=== PATIENT | male | born 1980 | race Caucasian/White ===

== ENCOUNTER 2021-08-16 18:04 | Inpatient (IN) | payer OTHER ==
[~2021-08-16] VITALS: Ht 170.2 cm; Wt 80.8 kg
[2021-08-16 18:08] VITALS: BP 129/75
[2021-08-16] MEDS ORDERED: NOVOLOG MI100 UNIT/M SUBQ (18:13)
[2021-08-16 20:18] LABS: BE 1.8 mmol/L (-2 to +3); PCO2 VENOUS 49.1 mmHg (41.0-51.0); PO2 VENOUS 28.7 mmHg (35.0-45.0)
[2021-08-16 20:19] LABS: ABSOLUTE LYMPHOCYTES 2.9 thou/uL (0.8-5.3); NUCLEATED RBCS 0 /100WBC; RDW-CV 13.5 % (10.5-14.5)
[2021-08-16 20:20] LABS: ABSOLUTE BASOPHILS 0.1 thou/uL (0.0-0.2); ABSOLUTE EOSINOPHILS 0.1 thou/uL (0.0-0.7); ABSOLUTE MONOCYTES 1.1 thou/uL (0.0-1.2); ABSOLUTE NEUTROPHILS 8.8 thou/uL (1.6-8.1); BASOPHILS 0.4 %; EOSINOPHILS 0.5 %; HEMATOCRIT 45.9 % (42.0-52.0); HEMOGLOBIN 15.9 gm/dL (14.0-18.0); LYMPHOCYTES 22.4 %; MCH 30.8 pg (26.0-34.0); MCHC 34.7 g/dL (28.0-37.0); MCV 88.8 fL (80.0-100.0); MONOCYTES 8.4 %; MPV 8.7 fl. (7.2-11.1); PLATELET COUNT* 185 thou/uL (150-400); POLYS 68.3 %; RBC 5.17 mil/uL (4.50-6.00); WBC 12.9 thou/uL (4.0-11.0)
[2021-08-16 20:28] LABS: URINE BILIRUBIN NEGATIVE (Negative); URINE BLOOD NEGATIVE (Negative); URINE CLARITY CLEAR; URINE COLOR YELLOW; URINE GLUCOSE-RANDOM 1+ (Negative); URINE KETONES NEGATIVE (Negative); URINE LEUKOCYTES-REFLEX NEGATIVE (Negative); URINE NITRITE-REFLEX NEGATIVE (Negative); URINE PROTEIN NEGATIVE (Negative)
[2021-08-16 20:28] LABS: CALCIUM 8.5 mg/dL (8.5-10.1); CREATININE 1.2 mg/dL (0.6-1.3); POTASSIUM 4.4 mmol/L (3.5-5.1)
[2021-08-16 20:33] LABS: ALBUMIN 3.6 g/dL (3.4-5.0); TOTAL BILIRUBIN 0.5 mg/dL (<0.1-1.0); TOTAL PROTEIN 7.6 g/dL (6.4-8.2)
[2021-08-16 20:43] LABS: AMP/METHAMP Negative (Negative); BARBITURATES Negative (Negative); BENZODIAZEPINES Negative (Negative); COCAINE Negative (Negative); METHADONE Negative (Negative); OPIATES Negative (Negative); PCP Negative (Negative); THC POSITIVE (Negative)
[2021-08-16 20:51] LABS: CHOLESTEROL 166 mg/dL (<200); HDL CHOLESTEROL 41 mg/dL (>40); LDL CHOLESTEROL 80 mg/dL (<100); TRIGLYCERIDE 227 mg/dL (<150); VLDL 45 mg/dL (<40)
[2021-08-16 20:54] LABS: SERUM ASSESSMENT Clear
[2021-08-16 23:15] VITALS: BP 116/81
[2021-08-16 23:30] VITALS: BP 112/70
[2021-08-17 08:30] VITALS: BP 115/77
--- NOTE | 2021-08-17 14:17 | EKG ---
[place] [address] ELECTROCARDIOGRAM REPORT Name: ANGELITO BANG Room: [address] IN ..#: [id number] Admission: 08/16/21 Attend Phys: Ren Lacy Discharge: Date of : 76 Date of Service: 08/16/212021 Report #: [id number] THIS REPORT FOR: //name// [facility] ED Test Date: 2021-08-16 Test Time: 20:22:29 Pat Name: ANGELITO BANG Department: Room: [facility] Gender: M [employer] Att[employer]: : 1980 Requested By: Justyna Read Order Number: [id number] MD: Trung Miles Measurements Intervals [place] Rate: 94 P: 72 [place]: 148 QRS: -10 QRSD: 93 T: 23 QT: 344 QTc: 431 Interpretive Statements Sinus rhythm No previous ECG available for comparison Electronically Signed On 08-17-2021 14:17:27 PULMONOLOGY PHYSICIAN by Trung Miles [email or web address] <ELECTRONICALLY SIGNED> By: Trung Miles MD, [facility] 08/17/21 1417 21 21 Trung Miles MD, [facility] /EPI
[2021-08-17 16:00] VITALS: BP 117/71
[2021-08-17 20:33] VITALS: BP 110/68
[2021-08-18 04:14] LABS: HEMATOCRIT 39.2 % (42.0-52.0); MCH 30.5 pg (26.0-34.0); MCHC 34.3 g/dL (28.0-37.0); MPV 8.4 fl. (7.2-11.1); RBC 4.4 mil/uL (4.50-6.00); RDW-CV 13.1 % (10.5-14.5); WBC 9.5 thou/uL (4.0-11.0)
[2021-08-18 04:54] LABS: CALCIUM 7.7 mg/dL (8.5-10.1); CREATININE 0.9 mg/dL (0.6-1.3)
[2021-08-18 05:01] LABS: HEMOGLOBIN 13.4 gm/dL (14.0-18.0)
[2021-08-18 07:08] LABS: GLYCOHEMOGLOBIN (HGB A1C) 13.5 % (4.8-5.6)
[2021-08-18 08:00] VITALS: BP 127/82
[2021-08-18 19:55] VITALS: BP 111/75
[2021-08-19 00:06] VITALS: BP 108/61
[2021-08-19 04:06] LABS: HEPATITIS B SURFACE AG Negative (Negative)
[2021-08-19 04:35] VITALS: BP 105/72
[2021-08-19 08:00] VITALS: BP 112/72
[2021-08-19 08:39] LABS: HEMATOCRIT 40.6 % (42.0-52.0); HEMOGLOBIN 13.7 gm/dL (14.0-18.0); MCH 29.9 pg (26.0-34.0); MCHC 33.9 g/dL (28.0-37.0); MCV 88.4 fL (80.0-100.0); MPV 8.9 fl. (7.2-11.1); RBC 4.59 mil/uL (4.50-6.00); RDW-CV 13.3 % (10.5-14.5); WBC 11.7 thou/uL (4.0-11.0)
[2021-08-19 08:57] LABS: ALBUMIN 2.5 g/dL (3.4-5.0); CALCIUM 8.3 mg/dL (8.5-10.1); CREATININE 0.9 mg/dL (0.6-1.3); MAGNESIUM 1.8 mg/dL (1.8-2.4); POTASSIUM 4.2 mmol/L (3.5-5.1); TOTAL BILIRUBIN 0.6 mg/dL (<0.1-1.0); TOTAL PROTEIN 6.3 g/dL (6.4-8.2)
[2021-08-19 16:00] VITALS: BP 115/75
[2021-08-19 20:22] VITALS: BP 114/66
[2021-08-20 07:00] LABS: HEMATOCRIT 43.5 % (42.0-52.0); HEMOGLOBIN 14.4 gm/dL (14.0-18.0); MCH 29.8 pg (26.0-34.0); MCHC 33.1 g/dL (28.0-37.0); MCV 90.2 fL (80.0-100.0); MPV 8.6 fl. (7.2-11.1); RBC 4.83 mil/uL (4.50-6.00); RDW-CV 13.2 % (10.5-14.5); WBC 7.4 thou/uL (4.0-11.0)
[2021-08-20 07:17] LABS: ALBUMIN 2.5 g/dL (3.4-5.0); CALCIUM 8.2 mg/dL (8.5-10.1); CREATININE 0.9 mg/dL (0.6-1.3); MAGNESIUM 1.5 mg/dL (1.8-2.4); POTASSIUM 3.6 mmol/L (3.5-5.1); TOTAL BILIRUBIN 0.4 mg/dL (<0.1-1.0); TOTAL PROTEIN 6.3 g/dL (6.4-8.2)
[2021-08-20 16:08] VITALS: BP 112/78
[2021-08-20 19:42] VITALS: BP 133/85
[2021-08-21 02:57] LABS: ALBUMIN 2.2 g/dL (3.4-5.0); CALCIUM 7.8 mg/dL (8.5-10.1); MAGNESIUM 1.4 mg/dL (1.8-2.4); POTASSIUM 3.8 mmol/L (3.5-5.1); TOTAL BILIRUBIN 0.3 mg/dL (<0.1-1.0); TOTAL PROTEIN 5.7 g/dL (6.4-8.2)
[2021-08-21 03:08] LABS: HEMATOCRIT 39.9 % (42.0-52.0); HEMOGLOBIN 13.4 gm/dL (14.0-18.0); MCHC 33.5 g/dL (28.0-37.0); MCV 89.5 fL (80.0-100.0); MPV 8.4 fl. (7.2-11.1); RBC 4.46 mil/uL (4.50-6.00); RDW-CV 13.3 % (10.5-14.5); WBC 6.3 thou/uL (4.0-11.0)
[2021-08-21 08:00] VITALS: BP 132/98
[2021-08-21] MEDS ORDERED: NOVOLOG100 UNIT/M SUBQ (11:27)
[2021-08-21] MEDS ORDERED: IBUPROFEN 800800 M1 PO (11:27)
[2021-08-21] MEDS ORDERED: AUGMENTIN 875-1 EACH PO (11:27)
[2021-08-21] MEDS ORDERED: LANTUS SUBQ (11:27)
[2021-08-21 11:32] VITALS: BP 133/85
[2021-08-21 12:21] VITALS: BP 133/85
[2021-08-21 12:35] VITALS: BP 133/85
== END 2021-08-21 12:36 | disposition home or self-care (01) | DRG 603 ==
LOC: M.ERS 18:04 → M.3W 21:46 → M.TBA-ER 21:46 → M.3W 23:06
PROVIDERS: Internal Medicine; Nurse Practitioner Family; ADMIT Internal Medicine; ATTEND Internal Medicine
PROC: 0J9R0ZZ Drainage of Left Foot Subcutaneous Tissue and Fascia, Open Approach (ICD-10-PCS; principal; 2021-08-18)
DX: L03.116 Cellulitis of left lower limb (principal); L02.612 Cutaneous abscess of left foot; I25.10 Atherosclerotic heart disease of native coronary artery without angina pectoris; R74.01 Elevation of levels of liver transaminase levels; E11.65 Type 2 diabetes mellitus with hyperglycemia; E78.5 Hyperlipidemia, unspecified; B19.20 Unspecified viral hepatitis C without hepatic coma; Z20.822 Contact with and (suspected) exposure to COVID-19

== ENCOUNTER 2021-09-03 08:17 | Emergency (ER) | payer OTHER ==
[~2021-09-03] VITALS: Ht 170.2 cm; Wt 79.4 kg
--- NOTE | ~2021-09-03 | EMS ---
[place] [address] EMS Patient Care Report Name: ANGELITO BANG Room: [facility]#: [id number] Admission: 09/03/21 Attend Phys: Discharge: Date of : 76 Report #: [id number] THIS REPORT FOR: //name// Report Transmitted: 09/03/2021 08:21 EMS Care Summary [facility] Incident [id number] @ 09/03/2021 07:52 Incident Location [address] [place] [address] Patient ANGELITO NAM Male, 40 Years 1980 Patient Address [address] [place] [address] Patient History Diabetes, Patient Allergies No known allergies, Patient Medications Insulin, Chief Complaint Infection of the left foot from prior injury Disposition Transported No Lights/[place] Reason No Other Appropriate Choice Transported To [facility] Narrative Dispatched to address noted for foot pain. [facility] en route and on scene at time noted with Utility [address]. [address] [address] EMS Patient Care Report Name: ANGELITO BANG Room: [facility]#: [id number] Admission: 09/03/21 Attend Phys: Discharge: Date of : 76 Report #: [id number] Arrived and found a male patient walking out of the motel from the second floor. Patient had no obvious signs of distress and he greeted us as we pulled up. Patient stated that he had a few stitches on this left foot from a prior foot wound/infection that was placed at [facility] a few days ago. Patient stated that the stitches had broken and the site appeared infected again. He pulled off his sock and revealed a red and swollen site that did appear infected. Patient had no problems walking out the injury and he stated he had no other means of transport to the hospital and wanted an ambulance transport. Patient was assisted to the back of the ambulance and then he sat on the stretcher and was buckled in. Once in ambulance, vitals where taken at time noted and transport back to [facility] was started. While en route, vitals where taken and again and patient stated no other complaint such as chest pain or shortness of breath. Vitals where within normal limits and radio report was given at time noted. Arrived and took patient to triage. Patient was sat in a chair and staff checked him in. RN was given a verbal report and signed for patient care. END REPORT EMT-P [place] Initial Vitals @08:04P: 81,R: 14,BP: 138/97,GCS: 15,SpO2: 99,Revised Trauma: 12, @08:10P: 87,R: 16,BP: 127/86,GCS: 15,SpO2: 99,Revised Trauma: 12, Impression Injury of Foot Timeline 07:52,Call Received 07:52,Dispatched 07:53,En Route 07:56,Initial Responder On Scene 07:56,On Scene 07:57,At Patient 07:59,Depart Scene 08:04,BP: 138/97 M,PULSE: 81,RR: 14 R,SPO2: 99 Ox,ETCO2: ,BG: ,PAIN: ,GCS: 15, 08:10,BP: 127/86 M,PULSE: 87,RR: 16 R,SPO2: 99 Ox,ETCO2: ,BG: ,PAIN: ,GCS: 15, 08:16,[place] [address] EMS Patient Care Report Name: ANGELITO BANG Room: [facility]#: [id number] Admission: 09/03/21 Attend Phys: Discharge: Date of : 76 Report #: [id number] 08:18,Transfer Patient 08:40,Call Closed 08:40,In District Disclaimer v1.1 Copyright 2020 [email or web address] This EMS Care Summary contains data elements from the applicable legal record (which may be displayed differently). It is designed to provide pertinent information for the following purposes: continuity of care, clinical quality, and state data reporting. The complete legal record is available to ED staff and administrators of the receiving hospital in [employer] Patient Tracker. All data is provided "as is."
[~2021-09-03 08:17] MED LIST: AUGMENTIN 875-1 EACH PO; IBUPROFEN 800800 M1 PO; LANTUS SUBQ; NOVOLOG MI100 UNIT/M SUBQ; NOVOLOG100 UNIT/M SUBQ
[2021-09-03] MEDS ORDERED: AUGMENTIN 875-1 EACH PO (10:36)
[2021-09-03 10:47] VITALS: BP 120/86
== END 2021-09-03 10:48 | disposition left against medical advice (07) ==
LOC: M.ERS 08:17
DX: L03.116 Cellulitis of left lower limb (principal); E10.9 Type 1 diabetes mellitus without complications